=== PATIENT | male | born 1950 | race American Indian/Alaskan Native ===

== ENCOUNTER 2018-01-18 09:15 | Outpatient (CLI) | payer MEDICARE ==
--- NOTE | 2018-01-18 14:43 | Nuclear Medicine Report ---
BONE SCAN: History: Malignant neoplasm of prostate. Comparison: CT abdomen pelvis without contrast performed the same day. After injection of isotope, gamma camera imaging of the bony system was performed. There is normal renal and soft tissue activity. Focal areas of increased radiotracer uptake are identified in the medial condyle of the right femur and the distal right tibia. No additional areas of increased bony uptake is demonstrated. IMPRESSION: Probably a negative bone scan for metastatic disease related to prostate cancer. There are 2 focal areas of increased uptake in the distal right femur and distal right tibia as described which are of uncertain significance. These would be uncommon sites for metastatic disease. Consider correlation with right knee x-ray and right tibia and fibula x-ray.
--- NOTE | 2018-01-18 14:49 | Cat Scan Report ---
CT ABDOMEN PELVIS WITHOUT CONTRAST: HISTORY: Malignant neoplasm of prostate. COMPARISON: none. TECHNIQUE: Helical CT in 1.25mm intervals without IV contrast. Sagittal and coronal reconstructions. FINDINGS: Lung bases: There are 2 calcified granulomas in the left lower lobe measuring less than 5 mm. No suspicious pulmonary nodule. Normal heart size. Liver: Normal. Biliary system: Normal. Pancreas: Normal. Spleen: The spleen is normal size. Scattered calcified splenic granulomas are noted. Kidneys/ureters/bladder: The kidneys are normal size, contour and position. A solitary punctate calyceal stone is identified at the superior pole of the right kidney. No evidence for mass, cystic disease or hydronephrosis. The ureters and bladder are unremarkable. Adrenal glands: Normal. Aorta: Mild atherosclerotic plaques are noted in the distal aorta and bilateral iliac systems. No aneurysm. Intestines: Moderate sigmoid diverticulosis is identified. Moderate constipation. No evidence for obstruction or focal inflammation. Appendix: Normal. Pelvic viscera: The prostate gland is mildly enlarged measuring 5.7 x 4.4 x 0.9 cm. Ascites: None. Adenopathy: There are multiple enlarged lymph nodes in the bilateral iliac chains. The largest lymph node on the right side measures 3.5 x 2.5 cm in the right internal iliac chain. The largest lymph node on the left side measures 3.4 x 2.0 cm and the left external iliac chain. There are also a few mildly enlarged lymph nodes in the aortocaval chain with the largest measuring 2.1 x 1.5 cm. Musculoskeletal: No suspicious bony lesion or fracture is identified. IMPRESSION: Bilateral pelvic and retroperitoneal adenopathy concerning for metastatic disease. Punctate calyceal stone in the superior left kidney. No hydronephrosis. Enlarged prostate gland. Sigmoid diverticulosis. Chronic granulomatous disease.
== END 2018-01-18 09:16 | disposition home or self-care (01) ==
LOC: NM 09:15
PROVIDERS: ATTEND Urology
DX: C61 Malignant neoplasm of prostate (principal); J84.10 Pulmonary fibrosis, unspecified; N40.0 Benign prostatic hyperplasia without lower urinary tract symptoms; K57.30 Diverticulosis of large intestine without perforation or abscess without bleeding; I70.0 Atherosclerosis of aorta
CPT/HCPCS: 74176; 78306; A9503

== ENCOUNTER 2020-09-15 13:09 | Outpatient (CLI) | payer MEDICARE ==
--- NOTE | 2020-09-15 14:59 | Cat Scan Report ---
CT ABDOMEN AND PELVIS WITHOUT IV CONTRAST INDICATION: Prostate cancer. COMPARISON: CT 01/18/2018 TECHNIQUE: All CT scans at this facility use dose modulation, automated exposure control, iterative reconstructi on or weight based dosing, when appropriate, to reduce radiation dose to as low as reasonably achieva ble. FINDINGS: Lung Bases: No acute/significant abnormality. Punctate calcified nodules in the left lower lobe are s table. Skeletal System: No acute abnormality. ABDOMEN: Liver: No significant abnormality. Gallbladder: No significant abnormality. Bile Ducts: No significant abnormality. Pancreas: No significant abnormality. Spleen: No significant abnormality. Adrenals: No significant abnormality. Right Kidney: No significant abnormality. Left Kidney: No significant abnormality. Upper GI tract: No significant abnormality. Lymph Nodes: No significant adenopathy. Aorta: No significant abnormality. Additional Findings: No significant abnormality. PELVIS: Colon: No acute abnormality. Diverticulosis is noted. Urinary Bladder and Distal Ureters: No significant abnormality. Appendix: No significant abnormality. Lymph Nodes: Shotty bilateral iliac chain nodes are noted. None of these measure larger than a centim eter. These are significantly decreased in size when compared with the remote prior CT. Additional Findings: There is interval decrease in size of the prostate. IMPRESSION: 1. No CT evidence of metastatic disease in the abdomen/pelvis. 2. Shotty bilateral iliac chain lymph nodes are present, these have significantly decreased in size since the remote prior CT. Signer Name: David Sandhu MD Signed: 09/15/2020 2:54 PM Workstation Name: [id number]
== END 2020-09-15 13:10 | disposition home or self-care (01) ==
LOC: CT 13:09
PROVIDERS: ATTEND Urology
DX: C61 Malignant neoplasm of prostate (principal); R91.1 Solitary pulmonary nodule; K57.30 Diverticulosis of large intestine without perforation or abscess without bleeding; R59.0 Localized enlarged lymph nodes
CPT/HCPCS: 74176